=== PATIENT | male | born 1980 | race Hispanic/Latino ===

== ENCOUNTER 2023-03-14 19:49 | Emergency (ER) | payer OTHER ==
[~2023-03-14] VITALS: Ht 165.1 cm; Wt 108.9 kg
[2023-03-14 20:03] VITALS: BP 106/73; PULSE 96; RESP 20
[2023-03-14] MEDS ORDERED: IBUP-2077 PO (20:56)
[2023-03-14] MEDS ORDERED: CEPH500B PO (20:56)
[2023-03-14] MEDS ORDERED: OCTYL 2-CYANOACRYLATE 1 EACH TP SCH (21:00)
[2023-03-14] MEDS ORDERED: TETANUS/DIPHTHERIA TOXOID [ADULT] 0.5 ML VIAL IM ONE (21:00)
== END 2023-03-14 21:11 | disposition home or self-care (01) ==
LOC: EDH 19:49
DX: S01.81XA Laceration without foreign body of other part of head, initial encounter (principal); X58.XXXA Exposure to other specified factors, initial encounter; Y93.89 Activity, other specified; Y92.89 Other specified places as the place of occurrence of the external cause; Y99.8 Other external cause status
CPT/HCPCS: 12013; 90471; 90714